=== PATIENT | male | born 1935 | race Caucasian/White ===

== ENCOUNTER 2018-01-23 20:35 | Observation (INO) | payer MEDICARE, OTHER ==
[~2018-01-23] VITALS: Ht 170.2 cm; Wt 81.7 kg
[2018-01-23 20:00] VITALS: BP 168/89
[~2018-01-23 20:35] MED LIST: AMIODARONE HCL200 MG PO; AMLODIPINE BESYL5 MG PO; CARVEDILOL12.5 MG PO; EPLERENONE25 MG PO; FUROSEMIDE40 MG PO; GLIMEPIRIDE4 MG PO; HYDRALAZINE HCL10 MG PO; ISOSORBIDE DINI20 MG PO; ISOSORBIDE DINI30 MG PO; LINZESS PO; LORAZEPAM1 MG PO; MIRALAX17 GM; PAROXETINE HCL10 MG PO; PLAVIX75 MG PO; TRAZODONE HCL50 MG PO; ULTRAM 50MG50 MG PO; WARFARIN SODIUM3 MG PO
[2018-01-23] MEDS ORDERED: TRAZODONE HCL 50 MG TAB PO PRN (22:30)
[2018-01-23] MEDS ORDERED: LORAZEPAM 1 MG TAB PO PRN (22:30)
[2018-01-23] MEDS ORDERED: TRAMADOL HCL 50 MG TAB PO ONE (22:30)
[2018-01-23] MEDS ORDERED: CLOPIDOGREL BISULFATE 75 MG TAB PO ONE (22:30)
[2018-01-23] MEDS ORDERED: LORAZEPAM 1 MG TAB PO SCH (23:24)
[2018-01-23] MEDS ORDERED: TRAZODONE HCL 50 MG TAB PO SCH (23:24)
[2018-01-23] MEDS ORDERED: TRAMADOL HCL 50 MG TAB PO PRN (23:30)
[2018-01-24] VITALS: BP 141/63
[2018-01-24 01:25] VITALS: BP 141/63
[2018-01-24 01:26] VITALS: BP 141/63
--- NOTE | 2018-01-24 02:37 | Diagnostic Imaging Report ---
EXAM: VQ LUNG SCAN VENT PERFUSION DATE: 01/23/2018 11:24 PM INDICATION: Elevated D dimer COMPARISON: Chest radiograph 01/23/2018 FINDINGS: Ventilation images of the lungs were obtained in multiple projections following administration of 11 mCi of Xenon 133 gas. Distribution of tracer activity is mildly irregular throughout the lungs. Retention is noted on washout images which can be seen with obstructive lung disease. No segmental ventilatory defects are identified. Perfusion images of the lungs in multiple projections were obtained following intravenous administration of 6 mCi of Tc-99m MAA. Distribution of tracer activity is irregular throughout the lungs. There are no segmental perfusion defects of any size. The perfusion images are well matched to the aerosol images. The cardiac silhouette is enlarged. IMPRESSION: Scan findings represent a low probability for acute pulmonary embolic disease based on the PIOPED II criteria. Signed by: Dr Carley Mayberry MD on 01/24/2018 2:34 AM
[2018-01-24] MEDS ORDERED: entresto PO (03:48)
[2018-01-24 04:00] VITALS: BP 183/84
[2018-01-24 05:28] LABS: BASOPHILS % 0.3 % (0.0-1.0); EOSINOPHILS # (AUTO) 0.3 (0.0-0.4); EOSINOPHILS % 3.8 % (0.0-6.0); HEMATOCRIT 35.9 % (38.2-49.6); HEMOGLOBIN 12.7 g/dL (14.0-18.0); LYMPHOCYTES % 30.6 % (18.0-39.1); MEAN CORPUSCULAR HEMOGLOBIN 33.1 pg (28-32); MEAN CORPUSCULAR HGB CONC 35.4 g/dL (31-35); MEAN CORPUSCULAR VOLUME 93.5 fL (81-99); MONOCYTES # (AUTO) 0.5 (0.2-0.8); MONOCYTES % 7.7 % (4.4-11.3); NEUTROPHILS # (AUTO) 3.8 (2.1-6.9); NEUTROPHILS % 57.3 % (38.7-80.0); PLATELET COUNT 163 x10e3/uL (140-360); RED BLOOD COUNT 3.84 x10e6/uL (4.3-5.7); RED CELL DISTRIBUTION WIDTH 13.2 % (11.7-14.4)
[2018-01-24 05:43] LABS: ALBUMIN 3.8 g/dL (3.5-5.0); ALBUMIN/GLOBULIN RATIO 1.4 (0.8-2.0); ANION GAP 10.9 mmol/L (8-16); CALCIUM 9.3 mg/dL (8.4-10.2); CREATININE, SERUM 1.82 mg/dL (0.72-1.25); POTASSIUM 3.9 mmol/L (3.5-5.1)
[2018-01-24] MEDS ORDERED: HEPARIN SOD (PORCINE) 5,000 UNIT/ML VIAL SC ONE (06:00)
[2018-01-24] MEDS ORDERED: FUROSEMIDE 20 MG TAB PO SCH (06:00)
[2018-01-24] MEDS ORDERED: HEPARIN SOD (PORCINE) 1000 UNIT/ML 10ML MDV SQ SCH (06:00)
[2018-01-24 08:29] VITALS: BP 134/65
[2018-01-24] MEDS ORDERED: SACUBITRIL VALSARTAN PO SCH (09:00)
[2018-01-24] MEDS ORDERED: CARVEDILOL 12.5 MG TAB PO SCH (09:00)
[2018-01-24] MEDS ORDERED: INSULIN DETEMIR 100 UNIT/ML PEN SQ SCH (09:00)
[2018-01-24] MEDS ORDERED: ISOSORBIDE MONONITRATE 30 MG TAB CR PO SCH (09:00)
[2018-01-24 09:02] LABS: CHOL/HDL RATIO 3.5 (3.9-4.7)
[2018-01-24 12:35] VITALS: BP 108/54
[2018-01-24] MEDS ORDERED: PEPCID20 MG PO (13:20)
--- NOTE | 2018-01-24 13:43 | History and Physical ---
PRIMARY CARE PHYSICIAN: Dr. Ledbetter CHIEF COMPLAINT: Fatigue. HISTORY OF PRESENT ILLNESS: An 82-year-old man with a history of coronary artery disease and congestive heart failure, now developing fatigue and tiredness. The patient denied any chest pain, shortness of breath, fever, chills, nausea, vomiting, or diarrhea. He just felt fatigued after being out in the sun running errands. He admits to not drinking water as he has CHF. The patient went to an urgent care facility and transitioned here with suspicion of pulmonary embolism. V/Q scan obtained is negative. The patient feels better and wants to go home. Denies any edema. PAST MEDICAL HISTORY: Coronary artery disease, status post aortocoronary bypass procedure in 1987, diabetes mellitus, chronic kidney disease, stage 3, depression, chronic anemia, thrombocytopenia, low back pain, asbestosis, chronic constipation, atrial fibrillation, sick sinus syndrome, status post permanent pacemaker placement, chronic diastolic and systolic congestive heart failure, COPD, sleep apnea. PAST SURGICAL HISTORY: Aortocoronary bypass procedure in 1987, permanent pacemaker placement. ALLERGIES: PER ELECTRONIC MEDICAL RECORD. FAMILY HISTORY/SOCIAL HISTORY: Patient denies any alcohol, illicits or cigarettes. 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 MEDICATIONS: Per electronic medical record. REVIEW OF SYSTEMS: Denies any dizziness, chest pain, shortness of breath, fever, chills, sweats, nausea, vomiting, diarrhea, back pain, leg pain, headache. PHYSICAL EXAMINATION VITAL SIGNS: Have been reviewed. GENERAL: A tired-appearing man resting in bed. HEENT: Anicteric. Pupils respond to light. No oral lesions. CARDIOVASCULAR: Normal S1 and S2. LUNGS: Moderate breath sounds. ABDOMEN: Soft, nontender and nondistended. EXTREMITIES: No edema or calf tenderness. NEUROLOGICAL: Alert and oriented times 3. Moving all extremities. SKIN: Dry. PSYCHIATRIC: Normal affect. LABS: Reviewed. MEDICATIONS: Reviewed. ASSESSMENT: This is an 82-year-old man with: 1. Physical deconditioning. 2. Diabetes mellitus. 3. Coronary artery disease. 4. Depression. 5. History of asbestosis. 6. Atrial fibrillation history. 7. Chronic obstructive pulmonary disease. 8. Sleep apnea. 9. Chronic diastolic and systolic congestive heart failure. 10. Diabetic nephropathy. 11. Chronic kidney disease, stage 3. 12. Normocytic anemia. PLAN 1. V/Q scan is negative. 2. The patient's symptoms have resolved. 3. The patient feels better. 4. Evaluated by cardiology. 5. Hemoglobin A1c 6.2, LDL 69 and triglycerides 191. 6. TSH is pending. 7. Renal function at baseline. 8. Discharge the patient once cleared by cardiology. He can follow up with primary care doctor in 1 week and cardiology in 1 week. Job#: [id number] PRIETO
[2018-01-24] MEDS ORDERED: DEXTROSE 50% SYRINGE 50 ML IV PRN (13:45)
[2018-01-24] MEDS ORDERED: HEPARIN SOD (PORCINE) 5,000 UNIT/ML VIAL SC SCH (14:15)
--- NOTE | 2018-01-24 15:50 | Discharge Summary ---
PRINCIPAL DIAGNOSES 1. Physical deconditioning. 2. Diabetes mellitus. 3. Coronary artery disease. SECONDARY DIAGNOSES 1. Diabetes mellitus. 2. Coronary artery disease. 3. Depression. 4. Atrial fibrillation. 5. Chronic obstructive pulmonary disease. 6. Chronic diastolic and systolic congestive heart failure. 7. Diabetic nephropathy. 8. Chronic kidney disease, stage 3. CHIEF COMPLAINT: Fatigue. HISTORY OF PRESENT ILLNESS: An 82-year-old man with fatigue. Refer to the H and P for further details. HOSPITAL COURSE: The patient had fatigue and tiredness. Had a test done. V/Q scan was done and negative. The patient is feeling better after he has been out of the sun and received some rehydration. He is currently appropriate for discharge and follow up. DISCHARGE MEDICATIONS: Per electronic medical records. FOLLOWUP 1. Primary care doctor in 1 week. 2. Cardiology in 1 week. CONDITION ON DISCHARGE: Stable and improved. DISCHARGE LOCATION: Home once cleared by cardiology. ALEX HERRERA MD Job#: [id number] HI
[2018-01-24] MEDS ORDERED: INSULIN REGULAR, HUMAN 100 UNIT/1 ML 3ML VIAL SQ SCH (16:30)
--- NOTE | 2018-01-25 18:37 | Consultation ---
DATE OF CONSULTATION: January 24, 2018 Patient admitted on the [address] Gamble and seen in consultation on the 24 of January. HISTORY: This 82-year-old patient was seen at the [facility] and then transferred over here to the emergency room and was admitted to the hospital. The patient is not a very good historian and he is giving the following history: He indicated that he was at store and after he returned home, he saw circles in front of his eyes. He then sat down and watched television and then became very sick. However, the patient cannot describe the feeling of sickness in any detail and he denied having any chest pain or shortness of breath. Denied any dizziness, abdominal discomfort, nausea, vomiting, diaphoresis. However, he had V/Q lung scan which did not show any evidence of pulmonary embolization. The patient, however, indicated that sick feeling stayed with him for about 2 to 3 hours and that prompted the emergency room at [facility] to send him over to be admitted. However, the patient stated that on arrival to the emergency room over here, he was already feeling in his usual condition and he actually stated that he is feeling fine since he awakened this morning. PAST HISTORY: Reveals that he had aortocoronary bypass procedure in 1987, he required stenting of saphenous vein graft in 1998 and subsequently more recently patient had been hospitalized frequently with congestive heart failure and exacerbation of COPD. The last admission was in the [place] area where apparently he also underwent cardiac catheterization and that his bypasses have been normal according to the patient. The patient required a permanent pacemaker in 2008 which was upgraded to a biventricular pacemaker in 2016 because of recurrent congestive heart failure. He was found to be in atrial fibrillation in January of 2016. The patient does have COPD, sleep apnea, has CPAP. He had previous cholecystectomy. He has chronic renal insufficiency, stage 4. He has insulin-dependent diabetes mellitus, premature ventricular contractions, depression, chronic anemia and thrombocytopenia, chronic low back pain with peripheral neuropathy. Had history of herpes zoster. He has chronic constipation. 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 ALLERGIES: PENICILLIN, ALL THE MYCINS IN PARTICULAR ERYTHROMYCIN. HE ALSO IS ALLERGIC TO CODEINE, AND DEVELOPED GYNECOMASTIA WITH DIGITALIS AND ALDACTONE. SOCIAL HISTORY: Negative. FAMILY HISTORY: Noncontributory. REVIEW OF SYSTEMS: The remainder of systems reviewed, reveals the following: The patient denies any fever, headache, or sore throat, cough or sputum production. Patient denies any abdominal pain. Denies any leg pain or leg swelling. PHYSICAL EXAMINATION: VITAL SIGNS: Reveals a blood pressure 130/65, temperature is 96.8, oxygen saturation was 98%. NECK: Carotid pulses are present. CHEST: Clear to auscultation. There are no rales, no rhonchi. There are no wheezes. CARDIOVASCULAR SYSTEM: There is a normal apical impulse. The rhythm is regular with extrasystoles, and on telemetry the patient is showing a paced rhythm with premature ventricular contractions and fusion beats. ABDOMEN: Soft. There is no tenderness or organomegaly. EXTREMITIES: Posterior tibial pulses are 2+ bilaterally. There is no peripheral edema. Homans' sign is negative. NEUROLOGIC: Does not reveal any motor defect. IMPRESSION: 1. Coronary artery disease, postop aortocoronary bypass procedure, coronary stenting. 2. Chronic congestive heart failure. 3. Sick sinus syndrome, atrial fibrillation, premature ventricular contractions, and permanent pacemaker with biventricular pacing. 4. Chronic kidney disease, stage 4. 5. Insulin-dependent diabetes mellitus. 6. Hypertensive cardiovascular disease. 7. Chronic low back pain. The patient appears to be stable and it is not clear on the patient's evaluation for his "sickness," however, I would recommend to repeat electrocardiogram and obtain an echocardiogram, otherwise the patient could be discharged soon or within the next 24 hours if he remains stable and he should continue his home medication. Thank you very much for letting me see this very nice patient. Job#: [id number]
== END 2018-01-24 15:40 | disposition home or self-care (01) ==
LOC: IMCU 20:53
PROVIDERS: ADMIT Internal Medicine; ATTEND Internal Medicine
DX: R53.81 Other malaise (principal); I25.10 Atherosclerotic heart disease of native coronary artery without angina pectoris; I48.91 Unspecified atrial fibrillation; J44.9 Chronic obstructive pulmonary disease, unspecified; G47.30 Sleep apnea, unspecified; I13.0 Hypertensive heart and chronic kidney disease with heart failure and stage 1 through stage 4 chronic kidney disease, or unspecified chronic kidney disease; I50.42 Chronic combined systolic (congestive) and diastolic (congestive) heart failure; N18.3 Chronic kidney disease, stage 3 (moderate); D64.9 Anemia, unspecified; N28.9 Disorder of kidney and ureter, unspecified; F32.9 Major depressive disorder, single episode, unspecified; E11.22 Type 2 diabetes mellitus with diabetic chronic kidney disease; Z95.1 Presence of aortocoronary bypass graft; Z95.0 Presence of cardiac pacemaker; I49.5 Sick sinus syndrome; I49.3 Ventricular premature depolarization; T45.515A Adverse effect of anticoagulants, initial encounter
CPT/HCPCS: 36415 ×2; 78582; 80053; 80061; 82948 ×2; 83036; 84443; 84484; 85025; 93005; 93306; 97139; A9540; A9558; G0378 ×2; J1644

== ENCOUNTER 2018-04-13 06:51 | Observation (INO) | payer MEDICARE, OTHER ==
[~2018-04-13] VITALS: Ht 170.2 cm; Wt 83.7 kg
[~2018-04-13 06:51] MED LIST changes: +PEPCID20 MG PO; +entresto PO
[2018-04-13] MEDS ORDERED: SODIUM CHLORIDE 0.9% 1000ML 1,000 ML IV STA (06:55)
[2018-04-13] MEDS ORDERED: INSULIN REGULAR, HUMAN 100 UNIT/1 ML 3ML VIAL SQ ONE (07:30)
[2018-04-13 07:39] LABS: BASOPHILS % 0.3 % (0.0-1.0); EOSINOPHILS # (AUTO) 0.3 (0.0-0.4); EOSINOPHILS % 4.1 % (0.0-6.0); HEMATOCRIT 34.6 % (38.2-49.6); HEMOGLOBIN 12.1 g/dL (14.0-18.0); LYMPHOCYTES # (AUTO) 1.6 (1.0-3.2); LYMPHOCYTES % 25.6 % (18.0-39.1); MEAN CORPUSCULAR HEMOGLOBIN 33.2 pg (28-32); MEAN CORPUSCULAR VOLUME 95.1 fL (81-99); MONOCYTES # (AUTO) 0.5 (0.2-0.8); MONOCYTES % 8.3 % (4.4-11.3); NEUTROPHILS # (AUTO) 3.9 (2.1-6.9); NEUTROPHILS % 61.4 % (38.7-80.0); PLATELET COUNT 114 x10e3/uL (140-360); RED BLOOD COUNT 3.64 x10e6/uL (4.3-5.7); RED CELL DISTRIBUTION WIDTH 12.7 % (11.7-14.4)
[2018-04-13 07:49] LABS: CLARITY,URINE SL CLOUDY (CLEAR); COLOR,URINE YELLOW (YELLOW); KETONES,URINE NEGATIVE (NEGATIVE); LEUKOCYTE ESTERASE ,URINE NEGATIVE (NEGATIVE); NITRITE,URINE NEGATIVE (NEGATIVE); PROTEIN,URINE DIPSTICK NEGATIVE (NEGATIVE); URINE UROBILINOGEN 0.2 mg/dL (0.2 - 1)
[2018-04-13 07:50] LABS: AMYLASE 33 U/L (25-125); LIPASE 18 U/L (8-78)
[2018-04-13 07:50] LABS: BILIRUBIN,URINE NEGATIVE (NEGATIVE)
[2018-04-13 07:56] LABS: CREATINE KINASE MB 0.8 ng/mL (0-5.0)
--- NOTE | 2018-04-13 07:59 | Diagnostic Imaging Report ---
PROCEDURE: A single AP view of the chest. COMPARISON: None. INDICATIONS: CONFUSION, HYPERGLYCEMIA FINDINGS: Lines/tubes: Triple lead left-sided cardiac device appears intact. There are sternotomy wire sutures. Lungs: The lungs are well inflated and clear. There is no evidence of pneumonia or pulmonary edema. Pleura: There is no pleural effusion or pneumothorax. Heart and mediastinum: The heart is enlarged. Bones: No acute bony abnormality. IMPRESSION: Cardiomegaly without overt signs of failure. Dylan Duncan D.O. Dictated by: Dylan Duncan D.O. on 04/13/2018 at 8:07 Electronically approved by: Dylan Duncan D.O. on 04/13/2018 at 8:07
--- NOTE | 2018-04-13 08:09 | Diagnostic Imaging Report ---
Exam: Head CT without contrast History: Confusion Comparison studies: None Technique: Axial images were obtained from the skull base to the vertex. Coronal and sagittal images reconstructed from the axial data. Dose modulation, iterative reconstruction, and/or weight based adjustment of the mA/kV was utilized to reduce the radiation dose to as low as reasonably achievable. Radiation dose: Total DLP: 921 mGy*cm. Estimated effective dose: DLP x 0.015 Intravenous contrast: None Findings: Scalp: No abnormalities. Bones: No fractures, blastic or lytic lesions. Brain sulci: Mildly prominent. Ventricles: Mild compensatory dilatation. No hydrocephalus. Extra-axial spaces: No masses, no fluid collection. Parenchyma: No mass, acute hemorrhage or acute cortical vascular insults. There are chronic lacunar infarcts near the genu of the left internal capsule and in the right thalamus. A few scattered hypodensities in the supratentorial white matter are nonspecific but most compatible with chronic microvascular ischemic changes. Sellar/suprasellar region: No abnormalities. Craniocervical junction: Patent foramen magnum. No Chiari one malformation. Incidental findings: Right intraocular lens replacements for previous scattered surgery Atherosclerotic calcifications in the carotid siphons and intradural vertebral arteries. IMPRESSION: No acute intracranial abnormalities. Chronic findings: 1. Mild generalized volume loss. 2. Mild microvascular ischemic changes. 3. Chronic lacunar infarcts in the genu of the left internal capsule and right thalamus. Signed by: Dr. José Mehta M.D. on 04/13/2018 8:06 AM
[2018-04-13 08:10] LABS: EPITHELIAL CELLS,URINE RARE /LPF
[2018-04-13 08:57] LABS: ALBUMIN 3.7 g/dL (3.5-5.0); ALBUMIN/GLOBULIN RATIO 1.4 (0.8-2.0); CALCIUM 9.1 mg/dL (8.4-10.2); CREATININE, SERUM 3.16 mg/dL (0.72-1.25)
[2018-04-13] MEDS ORDERED: DEXTROSE 50% SYRINGE 50 ML IV PRN (09:45)
[2018-04-13] MEDS: SODIUM CHLORIDE 0.9% 1000ML 1,000 ML IV SCH ×2 (09:50→19:34)
[2018-04-13 10:35] VITALS: BP 139/68
[2018-04-13] MEDS ORDERED: ASPIRIN81 MG PO (11:09)
[2018-04-13] MEDS ORDERED: VITAMIN B-121000 MCG PO (11:09)
[2018-04-13] MEDS ORDERED: RENA-VITE RX T1 EACH (11:09)
[2018-04-13] MEDS: INSULIN REGULAR, HUMAN 100 UNIT/1 ML 3ML VIAL SQ SCH ×3 (11:30→21:23)
[2018-04-13 12:01] VITALS: BP 139/68
[2018-04-13 16:29] VITALS: BP 141/67
[2018-04-13 20:00] VITALS: BP 138/70
[2018-04-13 20:40] VITALS: BP 143/65
[2018-04-13] MEDS: LEVOFLOXACIN 250MG/D5W 50ML 50 ML IV SCH (20:55)
--- NOTE | 2018-04-13 21:18 | History and Physical ---
This is an 82-year-old male that come in with confusion. HISTORY OF PRESENT ILLNESS: This is Mr. Harmon who is an 82-year-old male with a history of diabetes, was in his usual state of health until a day prior to admission. The patient on the night of admission early on started up with confusion. The patient was having delusional symptoms and auditory hallucination. The patient continues to do this and blood sugar was checked, it was about 500 and EMS was activated and the patient brought on to the emergency room and admitted for acute mental status changes. PAST MEDICAL HISTORY: History of coronary artery disease, history of hypertension, history of anxiety, history of chronic pain, history of diabetes mellitus, hypertension, and hyperlipidemia. MEDICINES: She takes at home were: 1. Aspirin 81 mg. 2. Carvedilol 12.5 mg. 3. Plavix 75 mg daily. 4. Vitamin B12. 5. Famotidine 20 mg twice a day. 6. Furosemide 40 mg. 7. Isosorbide dinitrate 20 mg. 8. Lorazepam 1 mg at nighttime. 9. Tramadol 50 daily p.r.n. 10. Trazodone 50 at nighttime. 11. B complex. 12. Entresto 24 mg twice a day for CHF. SURGICAL HISTORY: Includes history of coronary artery bypass x2, history of pacemaker placement, and also cholecystectomy. SOCIAL HISTORY: No ETOH. No IV drug abuse. Lives with and daughters are primary php magento developer too. REVIEW OF SYSTEMS: Negative for chest pain. No shortness of breath. No nausea, vomiting, or diarrhea. No constipation. No rectal bleeding. No hematochezia. No dysuria. No abdominal pain either. PHYSICAL EXAMINATION GENERAL: The patient is confused, alert, and oriented x2. HEENT: Normocephalic, atraumatic. Pupils are reactive to light and accommodation. NECK: No JVD present. Supple. CVS: S1 and S2 normal. Regular rate and rhythm. S3 present. RESPIRATORY: No respiratory distress. Clear to auscultation bilaterally. ABDOMEN: Tenderness in the suprapubic area. BACK: No CVA tenderness. SKIN: Normal. EXTREMITIES: No clubbing. No cyanosis. No edema. NEUROLOGIC: Altered mental status. No aphasia. Mood and affect normal. Speech normal. Cranial nerves are normal and no cerebellar signs as mentioned in the ER notes. Generalized weakness noted. No sensory deficit. IMAGING: EKG shows AV paced rhythm. Chest x-ray, no acute disease. Cardiomegaly is normal. CT of the head, no hemorrhage, chronic lacunar infarct which the patient had a CVA in the past. LABORATORY TEST: BUN and creatinine were elevated. CBC is normal. Mild anemia. Hemoglobin 12. Chemistries: Glucose is 464 with creatinine of 3.1. Cardiac labs have been normal. Urine dipstick: Protein negative, glucose 260, ketones negative, clean catch, otherwise normal. ASSESSMENT: Acute mental status changes. CT findings are normal; however, the patient has suprapubic tenderness. We will go ahead and start the patient on empiric antibiotics. White count was normal. We will call for the urine anyway and hydrate the patient. He is on 100 mL an hour. We started some medications. FINAL DIAGNOSES 1. Acute mental status changes. 2. Acute renal failure. 3. Chronic kidney disease. 4. Hypertension. 5. History of coronary artery disease. Further recommendations per clinical course. We will check labs tomorrow and we will put him on empiric antibiotic at this time. Job#: [id number] LUDMILA
[2018-04-13] MEDS: LORAZEPAM 1 MG TAB PO SCH (21:22)
[2018-04-13] MEDS: CARVEDILOL 12.5 MG TAB PO SCH (21:22)
[2018-04-14] VITALS (7 sets, daily range): BP systolic 121–157; BP diastolic 58–72
[2018-04-14 00:29] LABS: CREATINE KINASE MB 0.9 ng/mL (0-5.0)
[2018-04-14 05:09] LABS: BASOPHILS % 0.3 % (0.0-1.0); EOSINOPHILS # (AUTO) 0.3 (0.0-0.4); EOSINOPHILS % 3.9 % (0.0-6.0); HEMATOCRIT 35.4 % (38.2-49.6); HEMOGLOBIN 12.3 g/dL (14.0-18.0); LYMPHOCYTES # (AUTO) 1.5 (1.0-3.2); LYMPHOCYTES % 19.8 % (18.0-39.1); MEAN CORPUSCULAR HEMOGLOBIN 32.7 pg (28-32); MEAN CORPUSCULAR HGB CONC 34.7 g/dL (31-35); MEAN CORPUSCULAR VOLUME 94.1 fL (81-99); MONOCYTES # (AUTO) 0.6 (0.2-0.8); MONOCYTES % 7.1 % (4.4-11.3); NEUTROPHILS # (AUTO) 5.3 (2.1-6.9); NEUTROPHILS % 68.6 % (38.7-80.0); PLATELET COUNT 122 x10e3/uL (140-360); RED BLOOD COUNT 3.76 x10e6/uL (4.3-5.7); RED CELL DISTRIBUTION WIDTH 12.8 % (11.7-14.4)
[2018-04-14 05:31] LABS: ANION GAP 15.9 mmol/L (8-16); CALCIUM 9.1 mg/dL (8.4-10.2); CREATININE, SERUM 2.18 mg/dL (0.72-1.25); POTASSIUM 3.9 mmol/L (3.5-5.1)
[2018-04-14] MEDS: ENTRESTO PO SCH ×2 (09:00→17:00)
[2018-04-14] MEDS: INSULIN REGULAR, HUMAN 100 UNIT/1 ML 3ML VIAL SQ SCH ×4 (09:17→21:00)
[2018-04-14] MEDS: INSULIN DETEMIR 100 UNIT/ML PEN SQ SCH ×2 (09:17→17:39)
[2018-04-14] MEDS: CLOPIDOGREL BISULFATE 75 MG TAB PO SCH (09:18)
[2018-04-14] MEDS: TRAMADOL HCL 50 MG TAB PO SCH (09:18)
[2018-04-14] MEDS: ASPIRIN 81 MG CHEW TAB PO SCH (09:18)
[2018-04-14] MEDS: CARVEDILOL 12.5 MG TAB PO SCH ×2 (09:18→21:40)
[2018-04-14] MEDS: FUROSEMIDE 40 MG TAB PO SCH ×2 (09:18→17:39)
[2018-04-14] MEDS: FAMOTIDINE 20 MG TAB PO SCH ×2 (09:18→17:38)
[2018-04-14] MEDS: ISOSORBIDE DINITRATE 20 MG TAB PO SCH ×2 (09:18→17:39)
[2018-04-14] MEDS: CYANOCOBALAMIN 1,000 MCG TAB PO SCH (09:19)
[2018-04-14] MEDS: SODIUM CHLORIDE 0.9% 1000ML 1,000 ML IV SCH (10:30)
[2018-04-14] MEDS: LEVOFLOXACIN 250MG/D5W 50ML 50 ML IV SCH (20:09)
[2018-04-14] MEDS: LORAZEPAM 1 MG TAB PO SCH (21:40)
[2018-04-15] MEDS: SODIUM CHLORIDE 0.9% 1000ML 1,000 ML IV SCH (01:20)
[2018-04-15 01:30] VITALS: BP 149/70
[2018-04-15 03:00] VITALS: BP 167/76
[2018-04-15 05:06] LABS: BASOPHILS % 0.3 % (0.0-1.0); EOSINOPHILS # (AUTO) 0.3 (0.0-0.4); EOSINOPHILS % 4.9 % (0.0-6.0); HEMATOCRIT 32.6 % (38.2-49.6); HEMOGLOBIN 11.4 g/dL (14.0-18.0); LYMPHOCYTES # (AUTO) 1.8 (1.0-3.2); LYMPHOCYTES % 27.2 % (18.0-39.1); MEAN CORPUSCULAR HEMOGLOBIN 32.9 pg (28-32); MEAN CORPUSCULAR VOLUME 94.2 fL (81-99); MONOCYTES # (AUTO) 0.6 (0.2-0.8); MONOCYTES % 9.2 % (4.4-11.3); NEUTROPHILS # (AUTO) 3.9 (2.1-6.9); NEUTROPHILS % 57.8 % (38.7-80.0); PLATELET COUNT 112 x10e3/uL (140-360); RED BLOOD COUNT 3.46 x10e6/uL (4.3-5.7)
[2018-04-15 05:27] LABS: ANION GAP 13.5 mmol/L (8-16); CALCIUM 8.8 mg/dL (8.4-10.2); CREATININE, SERUM 1.8 mg/dL (0.72-1.25); MAGNESIUM 1.6 MG/DL (1.3-2.1); POTASSIUM 3.5 mmol/L (3.5-5.1)
[2018-04-15] MEDS: INSULIN REGULAR, HUMAN 100 UNIT/1 ML 3ML VIAL SQ SCH (07:30)
[2018-04-15 07:45] VITALS: BP 141/63
[2018-04-15 08:10] VITALS: BP 141/63
[2018-04-15] MEDS ORDERED: LEVAQUIN500 MG PO (08:46)
[2018-04-15] MEDS: CARVEDILOL 12.5 MG TAB PO SCH (08:57)
[2018-04-15] MEDS: ASPIRIN 81 MG CHEW TAB PO SCH (08:57)
[2018-04-15] MEDS: FAMOTIDINE 20 MG TAB PO SCH (08:57)
[2018-04-15] MEDS: FUROSEMIDE 40 MG TAB PO SCH (08:58)
[2018-04-15] MEDS: CLOPIDOGREL BISULFATE 75 MG TAB PO SCH (08:58)
[2018-04-15] MEDS: ENTRESTO PO SCH (08:58)
[2018-04-15] MEDS: TRAMADOL HCL 50 MG TAB PO SCH (08:58)
[2018-04-15] MEDS: INSULIN DETEMIR 100 UNIT/ML PEN SQ SCH (08:58)
[2018-04-15] MEDS: ISOSORBIDE DINITRATE 20 MG TAB PO SCH (08:58)
[2018-04-15] MEDS: CYANOCOBALAMIN 1,000 MCG TAB PO SCH (08:58)
== END 2018-04-15 10:15 | disposition home or self-care (01) ==
LOC: ER 06:51 → ERHOLD 09:47 → IMCU 10:45
PROVIDERS: ADMIT Family Medicine; ATTEND Family Medicine
DX: E11.65 Type 2 diabetes mellitus with hyperglycemia (principal); N17.9 Acute kidney failure, unspecified; I10 Essential (primary) hypertension; Z95.1 Presence of aortocoronary bypass graft; Z95.0 Presence of cardiac pacemaker; Z88.1 Allergy status to other antibiotic agents; Z88.5 Allergy status to narcotic agent; Z88.0 Allergy status to penicillin; Z88.2 Allergy status to sulfonamides; I25.10 Atherosclerotic heart disease of native coronary artery without angina pectoris; E78.5 Hyperlipidemia, unspecified; R41.82 Altered mental status, unspecified; E11.22 Type 2 diabetes mellitus with diabetic chronic kidney disease; I13.10 Hypertensive heart and chronic kidney disease without heart failure, with stage 1 through stage 4 chronic kidney disease, or unspecified chronic kidney disease; N18.9 Chronic kidney disease, unspecified; D64.9 Anemia, unspecified
CPT/HCPCS: 36415 ×3; 70450; 71045; 80048 ×2; 80053; 81001; 82150; 82550; 82553; 82948 ×3; 83690; 83735; 84484; 85025 ×3; 87086; 93005; 96367; 96372 ×2; 99285; G0378 ×3; J1956 ×2; J7030 ×2

== ENCOUNTER 2018-08-18 15:56 | Inpatient (IN) | payer MEDICARE, OTHER ==
[~2018-08-18] VITALS: Ht 170.2 cm; Wt 78.0 kg
[~2018-08-18 15:56] MED LIST changes: +ASPIRIN81 MG PO; +LEVAQUIN500 MG PO; +RENA-VITE RX T1 EACH; +VITAMIN B-121000 MCG PO
[2018-08-18 16:34] LABS: BASOPHILS % 0.1 % (0.0-1.0); EOSINOPHILS # (AUTO) 0.1 (0.0-0.4); EOSINOPHILS % 0.5 % (0.0-6.0); HEMATOCRIT 36.4 % (38.2-49.6); LYMPHOCYTES % 7.1 % (18.0-39.1); MEAN CORPUSCULAR HEMOGLOBIN 33.4 pg (28-32); MEAN CORPUSCULAR HGB CONC 35.7 g/dL (31-35); MEAN CORPUSCULAR VOLUME 93.6 fL (81-99); MONOCYTES # (AUTO) 1.1 (0.2-0.8); NEUTROPHILS # (AUTO) 11.7 (2.1-6.9); NEUTROPHILS % 83.8 % (38.7-80.0); PLATELET COUNT 143 x10e3/uL (140-360); RED BLOOD COUNT 3.89 x10e6/uL (4.3-5.7); RED CELL DISTRIBUTION WIDTH 13.5 % (11.7-14.4)
[2018-08-18 16:41] LABS: INR 1.03; PROTHROMBIN TIME 14.4 seconds (11.9-14.5)
[2018-08-18 16:52] LABS: ALBUMIN 3.7 g/dL (3.5-5.0); ALBUMIN/GLOBULIN RATIO 1.4 (0.8-2.0); ANION GAP 14.3 mmol/L (8-16); CALCIUM 9.4 mg/dL (8.4-10.2); CREATININE, SERUM 2.02 mg/dL (0.72-1.25); MAGNESIUM 2.1 MG/DL (1.3-2.1); POTASSIUM 3.3 mmol/L (3.5-5.1)
[2018-08-18 16:58] LABS: CREATINE KINASE MB 0.3 ng/mL (0-5.0)
[2018-08-18 17:03] LABS: B-TYPE NATRIURETIC PEPTIDE2 1923.2 pg/mL (0-100)
[2018-08-18 17:04] LABS: STREPTOCOCCUS GRP A ANTIGEN NEGATIVE (NEGATIVE)
[2018-08-18 17:10] LABS: INFLUENZAE A&B ANTIGEN (RAPID) NEGATIVE (NEGATIVE)
--- NOTE | 2018-08-18 17:14 | Diagnostic Imaging Report ---
EXAMINATION: Head CT HISTORY: Alteration of consciousness COMPARISON: Head CT on 04/13/2018 TECHNIQUE: Multidetector axial images were obtained without contrast from the foramen magnum to the vertex . The images were reconstructed using brain and bone algorithms. Thin section brain images were reformatted into coronal and sagittal planes. Image quality: Motion/streaking artifact limits the evaluation of the skull base and posterior cranial fossa. Dose modulation, iterative reconstruction, and/or weight based adjustment of the mA/kV was utilized to reduce the radiation dose to as low as reasonably achievable. FINDINGS: Parenchyma: 1. Persistent mild chronic microvascular ischemic changes and small chronic lacunar infarcts in the genu of the left internal capsule and right superior thalamus (caudothalamic groove). 2. No mass or hemorrhage. No CT evidence of acute territorial vascular insult. Extra-axial spaces:No abnormal density. No extra-axial fluid collections Brain volume: Normal for age. Ventricles: No hydrocephalus or displacement. Arteries: No density suggestive of thrombus. Dural sinuses: No abnormal density. Extra-axial spaces: No abnormal density. Foramen magnum: No mass, Chiari malformation, or basilar invagination. Sella: No obvious mass. Paranasal/mastoid sinuses: Imaged portions unremarkable. Skull/Scalp: No lytic or blastic lesions. No fractures. Incidental findings: Right intraocular lens replacements for previous scattered surgery Atherosclerotic calcifications in the carotid siphons and intradural vertebral arteries. IMPRESSION: 1. No acute intracranial hemorrhage or cortical infarcts. 2. Stable mild chronic microvascular ischemic changes and small chronic lacunar infarct when compared to head CT of 04/13/2018 Signed by: Dr. Amparo Snow M.D. on 08/18/2018 5:11 PM
[2018-08-18] MEDS: MEROPENEM 1GM 100 ML IV SCH (17:50)
[2018-08-18 17:58] LABS: CLARITY,URINE SL CLOUDY (CLEAR); COLOR,URINE YELLOW (YELLOW)
[2018-08-18 17:59] LABS: KETONES,URINE NEGATIVE (NEGATIVE); LEUKOCYTE ESTERASE ,URINE TRACE (NEGATIVE); NITRITE,URINE NEGATIVE (NEGATIVE); PROTEIN,URINE DIPSTICK 2+ (NEGATIVE); URINE UROBILINOGEN 4 mg/dL (0.2 - 1)
[2018-08-18 18:00] LABS: BILIRUBIN,URINE NEGATIVE (NEGATIVE)
[2018-08-18] MEDS ORDERED: VANCOMYCIN 1GM/NS 250 ML 250 ML IV ONE (18:00)
[2018-08-18] MEDS ORDERED: ACETAMINOPHEN 325 MG TAB PO ONE (18:00)
[2018-08-18] MEDS ORDERED: POTASSIUM CHLORIDE 20 MEQ TAB CR PO ONE (18:00)
[2018-08-18 18:05] LABS: AMORPHOUS SEDIMENT,URINE FEW (FEW); BACTERIA,URINE MODERATE /HPF; RBC,URINE >50 /HPF (0-5); WBC,URINE (MAN) >50 /HPF (0-5)
[2018-08-18 18:13] LABS: EPITHELIAL CELLS,URINE MODERATE /LPF
[2018-08-18] MEDS ORDERED: ONDANSETRON HCL INJ 2MG/ML 2ML 2 MG/ML VIAL IV PRN (19:00)
--- NOTE | 2018-08-18 19:12 | NUR ---
RECEIVED REPORT FROM CRAIG BAPTISTE DAY SHIFT NURSE.
--- NOTE | 2018-08-18 19:50 | NUR ---
Pt admitted to room 288 via stretcher with family at bedside. Pt alert to name and place. Forget of year of his . Skin warm and dry. No wounds or skin breakdowns noted. Bilateral arms skin rough. Bilateral feet scaly and dry. Lungs CTA. Cap refill <3 secs. +2 bilateral hand process safety engineer. Denies pain or discomfort at this time. Assist with Ambulation x1 and cane, left cane at home. Last BM Fri, soft, brown, mod. No acute distress noted. Oriented to room. Call reyes within reach. Bed low and locked. Bed alarm on. Will continue to monitor.
[2018-08-18 20:00] VITALS: BP 142/75
[2018-08-18 20:05] VITALS: BP 142/75
[2018-08-18] MEDS ORDERED: SODIUM CHLORIDE 0.9% 250ML 250 ML ONE (20:32)
--- NOTE | 2018-08-18 21:52 | NUR ---
Dr. Gamble ordered low dose insulin sliding scale.
[2018-08-18] MEDS ORDERED: DEXTROSE 50% SYRINGE 50 ML IV PRN (22:00)
[2018-08-18] MEDS: INSULIN REGULAR, HUMAN 100 UNIT/1 ML 3ML VIAL SQ SCH (22:15)
[2018-08-19] VITALS (8 sets, daily range): BP systolic 121–151; BP diastolic 60–77
[2018-08-19] MEDS: ACETAMINOPHEN 325 MG TAB PO PRN (00:30)
--- NOTE | 2018-08-19 01:03 | Diagnostic Imaging Report ---
EXAMINATION: CHEST SINGLE (PORTABLE) COMPARISON: Chest x-ray 04/13/2018 INDICATION: ^FEVER AMS DISCUSSION: Frontal view of the chest obtained at 1635 hours. HEART AND MEDIASTINUM: Stable cardiomegaly and pacemaker wires in the right atrium, right ventricle, coronary sinus LUNGS: Diffuse hyperinflation consistent with COPD. Bibasilar atelectasis. Small foci of pneumonia cannot be excluded. Pulmonary vascular markings are normal. Subcentimeter calcified granuloma in the right upper lobe is stable. PLEURA: No pleural effusion or pneumothorax. BONES AND SOFT TISSUES: Median sternotomy wires are intact. No focal osseous lesion. The soft tissues are normal. IMPRESSION: Stable cardiomegaly. Bibasilar airspace opacities may represent atelectasis or pneumonia. Signed by: Dr. Chase Ruff MD on 08/18/2018 5:33 PM
[2018-08-19 04:00] LABS: CREATINE KINASE MB 0.3 ng/mL (0-5.0)
[2018-08-19] MEDS: MEROPENEM 1GM 100 ML IV SCH ×2 (06:38→17:56)
[2018-08-19 07:16] LABS: BASOPHILS % 0.1 % (0.0-1.0); EOSINOPHILS # (AUTO) 0.2 (0.0-0.4); EOSINOPHILS % 1.3 % (0.0-6.0); HEMATOCRIT 34.6 % (38.2-49.6); HEMOGLOBIN 11.8 g/dL (14.0-18.0); LYMPHOCYTES # (AUTO) 1.2 (1.0-3.2); LYMPHOCYTES % 8.7 % (18.0-39.1); MEAN CORPUSCULAR HEMOGLOBIN 32.7 pg (28-32); MEAN CORPUSCULAR HGB CONC 34.1 g/dL (31-35); MEAN CORPUSCULAR VOLUME 95.8 fL (81-99); NEUTROPHILS # (AUTO) 11.7 (2.1-6.9); NEUTROPHILS % 82.2 % (38.7-80.0); PLATELET COUNT 133 x10e3/uL (140-360); RED BLOOD COUNT 3.61 x10e6/uL (4.3-5.7); RED CELL DISTRIBUTION WIDTH 13.5 % (11.7-14.4)
--- NOTE | 2018-08-19 07:30 | NUR ---
pt in bed resting ,denies pain,no confusion noted.
[2018-08-19 07:47] LABS: ALBUMIN 3.2 g/dL (3.5-5.0); ALBUMIN/GLOBULIN RATIO 1.2 (0.8-2.0); ALKALINE PHOSPHATASE 65 IU/L (40-150); ANION GAP 15.3 mmol/L (8-16); BLOOD UREA NITROGEN 27 mg/dL (7-26); BUN/CREATININE RATIO 15 (6-25); CALCIUM 9.2 mg/dL (8.4-10.2); CARBON DIOXIDE 26 mmol/L (22-29); CHLORIDE 108 mmol/L (98-107); CREATININE, SERUM 1.86 mg/dL (0.72-1.25); EST GLOMERULAR FILTRATION RATE 35 ML/MIN (60-); GLUCOSE 172 mg/dL (74-118); MAGNESIUM 2.6 MG/DL (1.3-2.1); POTASSIUM 3.3 mmol/L (3.5-5.1); SODIUM 146 mmol/L (136-145)
[2018-08-19 07:48] LABS: ALANINE AMINOTRANSFERASE < 6 IU/L (0-55)
[2018-08-19] MEDS: INSULIN REGULAR, HUMAN 100 UNIT/1 ML 3ML VIAL SQ SCH ×4 (08:00→21:26)
--- NOTE | 2018-08-19 10:39 | NUR ---
PRIMARY CARE PHYSICIAN: Dr. Ledbetter CHIEF COMPLAINT: Fatigue. HISTORY OF PRESENT ILLNESS: An 82-year-old man with a history of coronary artery disease and congestive heart failure, now with confusion, with visual hallucinations, found to have UTI; PAST MEDICAL HISTORY: Coronary artery disease, status post aortocoronary bypass procedure in 1987, diabetes mellitus, chronic kidney disease, stage 3, depression, chronic anemia, thrombocytopenia, low back pain, asbestosis, chronic constipation, atrial fibrillation, sick sinus syndrome, status post permanent pacemaker placement, chronic diastolic and systolic congestive heart failure, COPD, sleep apnea. PAST SURGICAL HISTORY: Aortocoronary bypass procedure in 1987, permanent pacemaker placement. ALLERGIES: PER ELECTRONIC MEDICAL RECORD. FAMILY HISTORY/SOCIAL HISTORY: Patient denies any alcohol, illicits or cigarettes. 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 MEDICATIONS: Per electronic medical record. REVIEW OF SYSTEMS: Denies any dizziness, chest pain, shortness of breath, fever, chills, sweats, nausea, vomiting, diarrhea, back pain, leg pain, headache. PHYSICAL EXAMINATION VITAL SIGNS: Have been reviewed. GENERAL: A tired-appearing man resting in bed. HEENT: Anicteric. Pupils respond to light. No oral lesions. CARDIOVASCULAR: Normal S1 and S2. LUNGS: Moderate breath sounds. ABDOMEN: Soft, nontender and nondistended. EXTREMITIES: No edema or calf tenderness. NEUROLOGICAL: Alert and oriented times 3. Moving all extremities. SKIN: Dry. PSYCHIATRIC: Normal affect. Musc: left chest palpable cardiac device. LABS: Reviewed. MEDICATIONS: Reviewed. ASSESSMENT: This is an 82-year-old man with: VESNA CKD 3 due to DM2 UTI Physical deconditioning. Diabetes mellitus. Coronary artery disease. Depression. History of asbestosis. Atrial fibrillation history. COPD Sleep apnea. Chronic diastolic and systolic congestive heart failure. PLAN abx f/u cx f/u renal fn; ivf monitor in CHF hab1c/lipids John Gamble MD, PhD.
[2018-08-19 11:38] LABS: CREATINE KINASE MB 0.4 ng/mL (0-5.0)
[2018-08-19 11:55] LABS: CHOL/HDL RATIO 3.3 (3.9-4.7)
[2018-08-19] MEDS: ISOSORBIDE DINITRATE 20 MG TAB PO SCH (17:00)
[2018-08-19] MEDS: FAMOTIDINE 20 MG TAB PO SCH (17:00)
--- NOTE | 2018-08-19 17:57 | NUR ---
PT UP IN BED ,SONAM BENNETT ,NO DISTRESS NTOED,
--- NOTE | 2018-08-19 19:00 | NUR ---
Bedside rounds completed with morning nurse. Pt alert and orient to name, place, and situation. Resp even and unlabored. Denies pain at this time. Call reyes within reach. Bed low and locked. Family at bedside. Will continue to monitor.
[2018-08-19] MEDS: TRAZODONE HCL 50 MG TAB PO SCH (21:25)
[2018-08-19] MEDS: CARVEDILOL 3.125 MG TAB PO SCH (21:25)
[2018-08-20] VITALS (8 sets, daily range): BP systolic 106–161; BP diastolic 58–70
[2018-08-20] MEDS: ACETAMINOPHEN 325 MG TAB PO PRN (00:55)
--- NOTE | 2018-08-20 02:18 | Consultation ---
DATE OF CONSULTATION: August 19, 2018 Patient was admitted for Dr. Gamble on the 18 of August and seen in consultation on the 19 of August. HISTORY: This 83-year-old patient was brought to the emergency room after he had sudden onset of confusion and fever and was found to have urinary tract infection. The patient is now on the floor of the medical department, on telemetry. He is sitting up in a chair and stating that he is feeling much better. The patient acknowledges that he has some confusion, but he has no total recollection about the event except that ambulance arrived and took him to the emergency room. The patient's brain scan showed some previous lacunar infarct, however, the patient denied any speech impairment or motor disability. 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 PAST HISTORY: Reveals that he had quadruple aortic bypass procedure in 1987, cardiac catheterization in 1998 revealed severe stenosis of right coronary artery and occlusion of the sequential portion to the obtuse marginal branch and he underwent saphenous vein graft bypass to the right coronary artery. The patient had cholecystectomy in the past. He has chronic renal insufficiency. He required permanent pacemaker in 2008 which was upgraded and replaced in 2016. 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 The patient also has sleep apnea and COPD. 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 He also had episode of in the past. He has peripheral vascular disease mostly affecting the left popliteal artery and the tibioperoneal arteries bilaterally. 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 ALLERGIES: PENICILLIN, ERYTHROMYCIN, CODEINE, DIGOXIN, AND ALDACTONE WHICH HAVE CAUSED GYNECOMASTIA. HE IS ALSO ALLERGIC TO SULFA. SOCIAL HISTORY: Negative. FAMILY HISTORY: Noncontributory. REVIEW OF SYSTEMS: The remainder of systems reviewed, revealed patient denies any cough or sputum production. The patient denies any shortness of breath, orthopnea, PND. He denies any chest pain. Patient denies any abdominal pain, nausea, vomiting, diarrhea, or constipation. He denies any leg swelling. PHYSICAL EXAMINATION: VITAL SIGNS: Reveals a blood pressure 150/77, temperature is 99.2, oxygen saturation 98% on room air. NECK: Carotid pulses are present. CHEST: Revealing decreased breath sounds. There are no rales. There are no wheezes. CARDIAC: Reveals a normal cardiac impulse. The rhythm is regular. First and second heart tone are normal. There is no S3. There is no rub. ABDOMEN: Soft. There is no tenderness or organomegaly. EXTREMITIES: Pedal pulses could not be palpated, however, there is no peripheral edema. Both feet are warm. Homans' sign is negative. NEUROLOGIC: Does not reveal any motor defect. IMPRESSION: 1. Altered mental status, improved. 2. Urinary tract infection. 3. Coronary atherosclerotic and hypertensive cardiovascular disease. 4. Permanent pacemaker with history of paroxysmal atrial fibrillation and premature ventricular contractions. 5. Chronic kidney disease. 6. Diabetes mellitus. 7. Chronic low back pain and peripheral neuropathy. 8. Depression. Agree with present excellent management and treatment plan and I will follow with you. Thank you very much for letting me see this very nice patient. Job#: [id number]
[2018-08-20] MEDS: MEROPENEM 1GM 100 ML IV SCH ×2 (05:52→17:33)
--- NOTE | 2018-08-20 07:00 | NUR ---
RECEIVED PATIENT RESTING IN BED. NO S/S OF DISTRESS NOTED, RESPIRATIONS EVEN AND UNLABORED. CALL LIGHT WITHIN REACH. BED IN THE LOWEST POSITION.
[2018-08-20] MEDS: INSULIN REGULAR, HUMAN 100 UNIT/1 ML 3ML VIAL SQ SCH ×4 (07:30→21:00)
[2018-08-20] MEDS: ASPIRIN 81 MG CHEW TAB PO SCH (08:43)
[2018-08-20] MEDS: CARVEDILOL 3.125 MG TAB PO SCH ×2 (08:44→21:00)
[2018-08-20] MEDS: FAMOTIDINE 20 MG TAB PO SCH ×2 (08:44→17:33)
[2018-08-20] MEDS: CLOPIDOGREL BISULFATE 75 MG TAB PO SCH (08:44)
[2018-08-20] MEDS: ISOSORBIDE DINITRATE 20 MG TAB PO SCH ×2 (08:44→17:32)
--- NOTE | 2018-08-20 11:18 | NUR ---
IM- Progress Note O/N; no events REVIEW OF SYSTEMS: Denies any dizziness, chest pain, shortness of breath, fever, chills, sweats, nausea, vomiting, diarrhea, back pain, leg pain, headache. PHYSICAL EXAMINATION VITAL SIGNS: Have been reviewed. GENERAL: A tired-appearing man resting in bed. HEENT: Anicteric. Pupils respond to light. No oral lesions. CARDIOVASCULAR: Normal S1 and S2. LUNGS: Moderate breath sounds. ABDOMEN: Soft, nontender and nondistended. EXTREMITIES: No edema or calf tenderness. NEUROLOGICAL: Alert and oriented times 3. Moving all extremities. SKIN: Dry. PSYCHIATRIC: Normal affect. Musc: left chest palpable cardiac device. LABS: Reviewed. MEDICATIONS: Reviewed. ASSESSMENT: This is an 82-year-old man with: VESNA CKD 3 due to DM2 UTI Physical deconditioning. Diabetes mellitus. Coronary artery disease. Depression. History of asbestosis. Atrial fibrillation history. COPD Sleep apnea. Chronic diastolic and systolic congestive heart failure. PLAN abx f/u cx f/u renal fn; ivf monitor in CHF hab1c/lipids 08/20/18 Hba1c/LDL 7.5/81. cont care; GNR UTI- f/u labs; John Gamble MD, PhD.
--- NOTE | 2018-08-20 15:49 | NUR ---
NOTIFIED DR. HERRERA OF POTASSIUM OF 3.3 YESTERDAY, NEW ORDER TO REPEAT POTASSIUM LEVEL.
--- NOTE | 2018-08-20 19:59 | NUR ---
REPORT GIVEN TO ONCOMING NURSE. PATIENT IS RESTING IN BED. NO ACUTE DISTRESS NOTED. CALL LIGHT WITHIN REACH. BED IN THE LOWEST POSITION.
--- NOTE | 2018-08-20 20:00 | NUR ---
INITIAL ASSESSMENT COMPLETE, PT IN BED, FAMILY AT BEDSIDE, NO DISTRESS NOTED, PT DUE TO GO HOME IN AM TOMORROW, VS STABLE, IV INTACT, SCD'S ON PT, TELE IN PLACE, CALL LIGHT IN REACH
[2018-08-20] MEDS: TRAZODONE HCL 50 MG TAB PO SCH (21:00)
[2018-08-21] VITALS: BP 117/64
[2018-08-21 04:45] VITALS: BP 141/74
[2018-08-21] MEDS: ACETAMINOPHEN 325 MG TAB PO PRN (05:53)
[2018-08-21] MEDS: MEROPENEM 1GM 100 ML IV SCH (05:53)
--- NOTE | 2018-08-21 06:08 | NUR ---
pt awake for meds, call light in reach, family at bedside, no distress noted, vs stable, tylenol given for elevated temp, iv intact
[2018-08-21] MEDS ORDERED: LEVAQUIN500 MG PO (06:51)
--- NOTE | 2018-08-21 06:52 | NUR ---
Discharge Summary Principal Dx: ASSESSMENT: This is an 82-year-old man with: VESNA CKD 3 due to DM2 UTI Physical deconditioning. Diabetes mellitus. Coronary artery disease. Depression. History of asbestosis. Atrial fibrillation history. COPD Sleep apnea. Chronic diastolic and systolic congestive heart failure. Secondary Dx: Depression cc and [facility]: ASSESSMENT: This is an 82-year-old man with: VESNA CKD 3 due to DM2 UTI Physical deconditioning. Diabetes mellitus. Coronary artery disease. Depression. History of asbestosis. Atrial fibrillation history. COPD Sleep apnea. Chronic diastolic and systolic congestive heart failure. PLAN abx f/u cx f/u renal fn; ivf monitor in CHF hab1c/lipids 08/20/18 Hba1c/LDL 7.581. cont care; GNR UTI- f/u labs; 08/21 Proteus mirabilis UTI d/c home d/c stable condition f/u pcp 1 week d/c time>35mins. John Gamble MD, PhD.
--- NOTE | 2018-08-21 07:08 | NUR ---
RECEIVED PATIENT RESTING IN BED. NO S/S OF DISTRESS NOTED. AT BEDSIDE. CALL LIGHT WITHIN REACH. BED IN THE LOWEST POSITION.
[2018-08-21 07:30] VITALS: BP 101/52
[2018-08-21] MEDS: INSULIN REGULAR, HUMAN 100 UNIT/1 ML 3ML VIAL SQ SCH (07:30)
[2018-08-21 07:52] VITALS: BP 101/52
[2018-08-21 08:14] VITALS: BP 108/58
[2018-08-21] MEDS: ISOSORBIDE DINITRATE 20 MG TAB PO SCH (08:17)
[2018-08-21] MEDS: ASPIRIN 81 MG CHEW TAB PO SCH (08:17)
[2018-08-21] MEDS: FAMOTIDINE 20 MG TAB PO SCH (08:17)
[2018-08-21] MEDS: CLOPIDOGREL BISULFATE 75 MG TAB PO SCH (08:17)
[2018-08-21] MEDS: CARVEDILOL 3.125 MG TAB PO SCH (08:17)
--- NOTE | 2018-08-21 09:29 | NUR ---
RECEIVED DC ORDER FROM MD, PATIENT IS IN STABLE CONDITION. IV LINE TO RIGHT AC DC'D WITH TIP INTACT, PRESSURE APPLIED TO SITE, NO BLEEDING NOTED. DISCHARGE TEACHING PROVIDED TO PATIENT AND . DISCHARGE FOLDER ON HAND WHICH INCLUDES DISCHARGE PAPERWORK AND PRESCRIPTION. PATIENT ACCOMPANIED TO PRIVATE AUTO VIA WHEELCHAIR BY STAFF.
== END 2018-08-21 10:07 | disposition home or self-care (01) | DRG 689 ==
LOC: ER 16:00 → ERHOLD 18:50 → MED/SURG3 19:40
PROVIDERS: ADMIT Internal Medicine; ATTEND Internal Medicine
DX: N39.0 Urinary tract infection, site not specified (principal); G93.41 Metabolic encephalopathy; I50.43 Acute on chronic combined systolic (congestive) and diastolic (congestive) heart failure; I50.22 Chronic systolic (congestive) heart failure; I13.0 Hypertensive heart and chronic kidney disease with heart failure and stage 1 through stage 4 chronic kidney disease, or unspecified chronic kidney disease; I11.0 Hypertensive heart disease with heart failure; E11.22 Type 2 diabetes mellitus with diabetic chronic kidney disease; N18.3 Chronic kidney disease, stage 3 (moderate); Z79.4 Long term (current) use of insulin; J44.9 Chronic obstructive pulmonary disease, unspecified; J61 Pneumoconiosis due to asbestos and other mineral fibers; Z77.090 Contact with and (suspected) exposure to asbestos; F32.9 Major depressive disorder, single episode, unspecified; Z79.01 Long term (current) use of anticoagulants; G47.33 Obstructive sleep apnea (adult) (pediatric); I25.10 Atherosclerotic heart disease of native coronary artery without angina pectoris; B96.4 Proteus (mirabilis) (morganii) as the cause of diseases classified elsewhere; Z95.0 Presence of cardiac pacemaker; Z95.1 Presence of aortocoronary bypass graft; E11.42 Type 2 diabetes mellitus with diabetic polyneuropathy; M54.5 Low back pain; G89.29 Other chronic pain; I48.0 Paroxysmal atrial fibrillation
CPT/HCPCS: 36415; 70450; 71045; 80053; 80061; 81001; 82550; 82553; 82948; 83036; 83518; 83605; 83735; 83880; 84132; 84484; 85025; 85610; 85730; 87040; 87070; 87086; 87186; 87400; 93005; 93306; 96367; 96372; 99285; J3370; J7050

== ENCOUNTER 2018-11-15 20:01 | Emergency (ER) | payer MEDICARE, OTHER ==
--- NOTE | 2018-11-15 20:24 | NUR ---
CALLED TO [facility] ROOM ATTEMPT 1 2023
== END 2018-11-15 20:08 | disposition short-term general hospital (02) ==
LOC: ER 20:01
DX: R69 Illness, unspecified (principal)

== ENCOUNTER 2018-12-25 03:36 | Emergency (ER) | payer MEDICARE, OTHER ==
[~2018-12-25] VITALS: Ht 170.2 cm; Wt 78.0 kg
[2018-12-25 04:01] LABS: BASOPHILS % 0.2 % (0.0-1.0); EOSINOPHILS # (AUTO) 0.4 (0.0-0.4); EOSINOPHILS % 5.4 % (0.0-6.0); HEMATOCRIT 35.2 % (38.2-49.6); HEMOGLOBIN 11.8 g/dL (14.0-18.0); LYMPHOCYTES # (AUTO) 1.9 (1.0-3.2); LYMPHOCYTES % 29.6 % (18.0-39.1); MEAN CORPUSCULAR HEMOGLOBIN 32.1 pg (28-32); MEAN CORPUSCULAR HGB CONC 33.5 g/dL (31-35); MEAN CORPUSCULAR VOLUME 95.7 fL (81-99); MONOCYTES # (AUTO) 0.6 (0.2-0.8); MONOCYTES % 8.7 % (4.4-11.3); NEUTROPHILS # (AUTO) 3.6 (2.1-6.9); NEUTROPHILS % 55.8 % (38.7-80.0); PLATELET COUNT 136 x10e3/uL (140-360); RED BLOOD COUNT 3.68 x10e6/uL (4.3-5.7); RED CELL DISTRIBUTION WIDTH 14.2 % (11.7-14.4)
[2018-12-25 04:12] LABS: BILIRUBIN,URINE NEGATIVE (NEGATIVE); CLARITY,URINE CLEAR (CLEAR); COLOR,URINE YELLOW (YELLOW); KETONES,URINE NEGATIVE (NEGATIVE); LEUKOCYTE ESTERASE ,URINE NEGATIVE (NEGATIVE); NITRITE,URINE NEGATIVE (NEGATIVE); PROTEIN,URINE DIPSTICK NEGATIVE (NEGATIVE); URINE UROBILINOGEN 0.2 mg/dL (0.2 - 1)
[2018-12-25 04:14] LABS: INR 1.03
[2018-12-25 04:15] LABS: PARTIAL THROMBOPLASTIN TIME 34.1 seconds (23.8-35.5)
--- NOTE | 2018-12-25 04:17 | Diagnostic Imaging Report ---
EXAMINATION: CHEST SINGLE (PORTABLE) COMPARISON: Chest x-ray 08/18/2018. INDICATION: Weakness. DISCUSSION: Dual lead left-sided cardiac pacemaker again observed. HEART AND MEDIASTINUM: The cardiac silhouette remains moderately enlarged. LUNGS: Bibasilar subsegmental atelectasis versus scarring. Bibasilar subsegmental atelectasis. Mild prominence of the central pulmonary vasculature. PLEURA: No pleural effusion or pneumothorax. BONES AND SOFT TISSUES: Median sternotomy wires are intact. No focal osseous lesion. IMPRESSION: Stable cardiomegaly. Bibasilar subsegmental atelectasis. Signed by: Dr. Gio Nolasco M.D. on 12/25/2018 4:14 AM
[2018-12-25 04:21] LABS: ALBUMIN 3.5 g/dL (3.5-5.0); ALBUMIN/GLOBULIN RATIO 1.2 (0.8-2.0); ANION GAP 11.2 mmol/L (8-16); CALCIUM 9.4 mg/dL (8.4-10.2); CREATININE, SERUM 2.05 mg/dL (0.72-1.25); MAGNESIUM 2.2 MG/DL (1.3-2.1); POTASSIUM 3.2 mmol/L (3.5-5.1)
[2018-12-25 04:27] LABS: BACTERIA,URINE FEW /HPF; EPITHELIAL CELLS,URINE FEW /LPF; RBC,URINE 0-5 /HPF (0-5); WBC,URINE (MAN) 0-5 /HPF (0-5)
[2018-12-25 04:27] LABS: CREATINE KINASE MB 1.2 ng/mL (0-5.0)
--- NOTE | 2018-12-25 05:14 | Diagnostic Imaging Report ---
History:Dizziness, arrhythmia Comparison studies: next field CT Head 08/18/2018 Technique: Axial images were obtained from the skull base to the vertex. Coronal and sagittal images reconstructed from the axial data. Intravenous contrast: None Dose modulation, iterative reconstruction, and/or weight based adjustment of the mA/kV was utilized to reduce the radiation dose to as low as reasonably achievable. Findings: Scalp/skull: No abnormalities. Extra-axial spaces: No masses. No fluid collections. Brain sulci: Mildly prominent. Ventricles: Mild compensatory dilatation. No hydrocephalus. Parenchyma: Scattered small hypodensities in the supratentorial white matter are small vessel ischemic changes. Chronic lacunar infarcts at the genu of the internal capsule, right thalamus, right. On the left striatocapsular region No masses, hemorrhage, acute or chronic cortical vascular insults. Sellar/suprasellar region: No abnormalities. Craniocervical junction: Patent foramen magnum. No Chiari one malformation. Incidental findings: Atherosclerotic calcifications in the carotid siphons . Impression: No acute abnormalities. Chronic findings: 1. Mild generalized volume loss. 2. Mild supratentorial white matter small vessel ischemic changes. Signed by: DR Alexander Cedeno M.D. on 12/25/2018 5:10 AM
[2018-12-25] MEDS ORDERED: POTASSIUM CHLORIDE 20 MEQ TAB CR PO STA (05:54)
[2018-12-25 06:27] VITALS: BP 121/75
== END 2018-12-25 06:37 | disposition home or self-care (01) ==
LOC: ER 03:36
DX: R42 Dizziness and giddiness (principal); R53.1 Weakness; I48.2 Chronic atrial fibrillation; N18.9 Chronic kidney disease, unspecified; G62.9 Polyneuropathy, unspecified; Z95.0 Presence of cardiac pacemaker
CPT/HCPCS: 36415; 70450; 71045; 80053; 81001; 82550; 82553; 83605; 83735; 83880; 84484; 85025; 85610; 85730; 87040; 87086; 93005; 99284